=== PATIENT | female | born 2000 | race African-American/Black ===

== ENCOUNTER 2022-01-03 20:44 | Emergency (ER) | payer SELFPAY ==
[2022-01-03 20:51] VITALS: BP 152/95
--- NOTE | 2022-01-03 23:58 | Emergency Department Report ---
ED ENT HPI - General Chief complaint: Sore Throat Stated complaint: SWOLLEN TONSILS Time Seen by Provider: 01/03/22 22:56 Source: patient Mode of arrival: Ambulatory Limitations: No Limitations - History of Present Illness Initial comments: 21-year-old female presenting with sore throat. Patient describes pain x2 days, states she feels like she may have another strep infection. Patient reports history of frequent strep infections. Has symptoms associated with pain, difficulty swallowing. She denies headache, no fever, no nausea vomiting, no recent travel or sick contacts, no headache, no vision changes, no cough cold congestion. complaint: sore throat - Related Data Previous Rx's Medication Instructions Recorded Last Taken Type Codeine Phosphate/Guaifenesin 10 ml PO QID PRN #60 01/04/22 Unknown Rx [Guaifen-Codeine 200-20 mg/10Ml] Ibuprofen [Motrin 800 MG tab] 800 mg PO Q8HR PRN #20 tablet 01/04/22 Unknown Rx Penicillin Vk [Veetids TAB] 500 mg PO BID 10 Days 01/04/22 Unknown Rx ED Dental HPI - General Chief complaint: Sore Throat Stated complaint: SWOLLEN TONSILS Time Seen by Provider: 01/03/22 22:56 Source: patient Mode of arrival: Ambulatory Limitations: No Limitations - Related Data Previous Rx's Medication Instructions Recorded Last Taken Type Codeine Phosphate/Guaifenesin 10 ml PO QID PRN #60 01/04/22 Unknown Rx [Guaifen-Codeine 200-20 mg/10Ml] Ibuprofen [Motrin 800 MG tab] 800 mg PO Q8HR PRN #20 tablet 01/04/22 Unknown Rx Penicillin Vk [Veetids TAB] 500 mg PO BID 10 Days 01/04/22 Unknown Rx ED Review of Systems ROS: Stated complaint: SWOLLEN TONSILS Other details as noted in HPI Constitutional: denies: chills, fever Eyes: as per HPI ENT: throat pain. denies: dental pain, congestion Respiratory: denies: cough, orthopnea Cardiovascular: denies: chest pain, palpitations Endocrine: denies: excessive sweating, intolerance to cold, intolerance to heat Gastrointestinal: denies: abdominal pain, nausea, vomiting, diarrhea Musculoskeletal: denies: back pain, joint swelling Skin: denies: rash, change in color Neurological: denies: headache, numbness, paresthesias Psychiatric: denies: anxiety, auditory hallucinations, homicidal thoughts Hematological/Lymphatic: swollen glands. denies: easy bleeding ED Past Medical Hx - Social History Smoking Status: Never Smoker Substance Use Type: None - Medications Home Medications: Home Medications Medication Instructions Recorded Confirmed Last Taken Type Codeine Phosphate/Guaifenesin 10 ml PO QID PRN #60 01/04/22 Unknown Rx [Guaifen-Codeine 200-20 mg/10Ml] Ibuprofen [Motrin 800 MG tab] 800 mg PO Q8HR PRN #20 tablet 01/04/22 Unknown Rx Penicillin Vk [Veetids TAB] 500 mg PO BID 10 Days 01/04/22 Unknown Rx ED Physical Exam - General Limitations: No Limitations General appearance: alert, in no apparent distress - Head Head exam: Present: atraumatic - Eye Eye exam: Present: normal appearance - ENT ENT exam: Absent: normal orophraynx - Expanded ENT Exam Expanded Ear exam: Present: normal external inspection Mouth exam: Present: muffled voice. Absent: drooling Throat exam: Positive: tonsillar erythema, tonsillar exudate, other (Midline) - Neck Neck exam: Present: tenderness, lymphadenopathy. Absent: meningismus - Respiratory Respiratory exam: Present: normal lung sounds bilaterally. Absent: respiratory distress - Cardiovascular Cardiovascular Exam: Present: regular rate, normal rhythm - GI/Abdominal GI/Abdominal exam: Present: soft, normal bowel sounds. Absent: distended, tenderness - Extremities Exam Extremities exam: Present: normal inspection, full ROM - Back Exam Back exam: Present: normal inspection, full ROM - Neurological Exam Neurological exam: Present: alert, oriented X3, CN II-XII intact, normal gait - Psychiatric Psychiatric exam: Present: normal affect, normal mood - Skin Skin exam: Present: warm, dry, intact, normal color ED Course Vital Signs 01/03/22 20:48 Temperature 98.1 F Pulse Rate 94 H Respiratory 18 Rate Blood Pressure 152/95 O2 Sat by Pulse 99 Oximetry ED Medical Decision Making - Medical Decision Making based on exam we will treat for exudative tonsillitis, vital signs are stable, patient is tolerating oral secretions, pain addressed in the ED, discharged home with antibiotics, symptom management supportive therapy including warm salt water gargle and follow-up with ENT Patient remained stable nontoxic-appearing, afebrile, ambulating steadily without assistance. Gone over ED findings with patient as well as plan for follow-up. Also discussed return precautions with patient, all questions and concerns addressed. Patient is stable to be discharged follow-up outpatient. Audio voice dictation device used, hence the chart might contain some dictation errors, mispronunciations, wrong spelling and wrong verbiage. Critical care attestation.: If time is entered above; I have spent that time in minutes in the direct care of this critically ill patient, excluding procedure time. ED Disposition Clinical Impression: Exudative tonsillitis, Pharyngotonsillitis Disposition: 01 HOME / SELF CARE / HOMELESS Is pt being admited?: No Does the pt Need Aspirin: No Condition: Stable Instructions: Strep Throat, Adult, [id number] Referrals: CHANDAN MAZARIEGOS MD [Staff Physician] - 3-5 Days Forms: Work/School Release Form(ED)
[2022-01-04] MEDS ORDERED: guaiFENesin/CODEINE 100-10MG ORAL LIQD 5 ML PO ONE (00:03)
[2022-01-04] MEDS ORDERED: PENICILLIN V POTASSIUM 250 MG TAB PO ONE (00:04)
[2022-01-04] MEDS ORDERED: dexAMETHasone 4 MG/ML VIAL PO ONE (00:05)
== END 2022-01-04 03:02 | disposition home or self-care (01) ==
LOC: ED 20:44
DX: J03.90 Acute tonsillitis, unspecified (principal); B00.2 Herpesviral gingivostomatitis and pharyngotonsillitis
CPT/HCPCS: 87116; 87430; 99283; J1100